=== PATIENT | male | born 1980 | race Hispanic/Latino ===

== ENCOUNTER 2024-07-31 21:42 | Emergency (ER) | payer OTHER ==
[~2024-07-31] VITALS: Ht 172.7 cm; Wt 136.0 kg
[2024-07-31 21:52] VITALS: BP 132/78
[2024-07-31 22:00] VITALS: BP 139/78
[2024-07-31] MEDS ORDERED: IPRATROPIUM-Albuterol 0.5MG-2.5MG/3 ML NEB ONE (22:00)
[2024-07-31] MEDS ORDERED: methylPREDNISolone SODIUM SUCC 125 MG/2 ML SDV IV ONE (22:00)
[2024-07-31 22:16] LABS: BASO% 0.6 % (0-3); EOS% 6.5 % (0-8); HEMATOCRIT 42.9 % (39.0-50.0); HEMOGLOBIN 14.1 g/dl (14.0-18.0); IMMATURE GRANULOCYTES 0.3 % (0.0-5.0); LYMPH% 30.3 % (15-41); MEAN CELL VOLUME 98.2 fL CALC (80.0-100.0); MEAN CORPUSCULAR HGB 32.3 pG CALC (26.0-32.0); MEAN CORPUSCULAR HGB CONC 32.9 g/dL CAL (32.0-36.0); MONO% 9.5 % (2-13); NEUT# 4.23 thou/uL (1.82-7.42); NEUT% 52.8 % (42-76); RED BLOOD COUNT 4.37 mill/uL (4.70-6.10); RED CELL DISTRI WIDTH 12.9 % (11.5-15.5)
[2024-07-31 22:31] LABS: ALBUMIN 3.8 g/dL (3.2-5.0); BILIRUBIN, TOTAL 0.4 mg/dL (0.2-1.3); CREATININE 0.7 mg/dL (0.7-1.3); POTASSIUM 4.1 mmol/l (3.5-5.1); TOTAL PROTEIN 6.4 g/dL (6.3-8.2)
[2024-07-31] MEDS ORDERED: PREDNISONE50 MG PO (22:41)
[2024-07-31] MEDS ORDERED: VENTOLIN HFA IN (22:41)
[2024-07-31] MEDS ORDERED: BENZONATATE200 MG PO (22:41)
[2024-07-31 23:12] VITALS: BP 132/78
== END 2024-07-31 23:27 | disposition home or self-care (01) | DRG 153 ==
LOC: ED 21:42
PROVIDERS: Family Medicine
DX: J06.9 Acute upper respiratory infection, unspecified (principal); J98.01 Acute bronchospasm; R73.9 Hyperglycemia, unspecified; F17.210 Nicotine dependence, cigarettes, uncomplicated; Z20.822 Contact with and (suspected) exposure to COVID-19